=== PATIENT | male | born 1965 | race Caucasian/White ===

== ENCOUNTER 2020-09-16 07:36 | Outpatient (CLI) | payer BC, SELFPAY ==
[2020-09-16 19:07] LABS: Basophils Absolute Auto 0.2 K/mm3 (0.0-0.1); Basophils Percent Auto 1.6 % (0.2-1.2); Eosinophils Absolute Auto 0.2 K/mm3 (0-0.3); Eosinophils Percent Auto 1.6 % (0-4.4); Hematocrit 42.4 % (42.0-52.0); Hemoglobin 13.6 g/dL (14.0-18.0); Lymphocytes Absolute Auto 1.54 K/mm3 (0.9-3.2); Lymphocytes Percent Auto 14.9 % (18.3-44.2); Mean Corpuscular HGB Conc 32.1 g/dl (32-36); Mean Corpuscular Hemoglobin 32.6 pg (26-34); Mean Corpuscular Volume 101.7 fl (80-100); Mean Platelet Volume 8.7 fl (7.4-10.4); Monocytes Absolute Auto 0.8 K/mm3 (0.1-0.6); Monocytes Percent Auto 7.8 % (2.6-8.5); Neutrophils Absolute Auto 7.5 K/mm3 (1.3-6.7); Neutrophils Percent Auto 73.1 % (45.5-73.1); Platelet Count Result 472 k/mm3 (150-375); Red Blood Count 4.17 M/mm3 (4.6-6.20); Red Cell Distribution Width 13.4 % (11.5-14.5); White Blood Count 10.3 K/mm3 (4.5-10.0)
[2020-09-16 19:19] LABS: Alanine Aminotransferase 19 U/L (4-50); Albumin Level 4.6 g/dL (3.5-5.1); Alkaline Phosphatase 96 U/L (38-126); Anion Gap 8 mmol/L (8-16); Aspartate Amino Transferase 24 U/L (17-59); Bilirubin,Total 0.6 mg/dL (0.2-1.3); Blood Urea Nitrogen 16 mg/dL (9-20); Calcium 10.2 mg/dL (8.4-10.2); Carbon Dioxide 27 mmol/L (22-30); Chloride 102 mmol/L (98-107); Cholesterol 179 mg/dL (0-200); Estimated Glomerular Filt Rate > 60; Glucose 107 mg/dL (75-110); HDL Direct 104 mg/dL; Potassium 4.8 mmol/L (3.4-5.0); Sodium 137 mmol/L (137-145); Triglycerides 58 mg/dL (<150)
[2020-09-16 19:31] LABS: LDL Cholesterol Direct 74 mg/dL
== END 2020-09-16 07:37 | disposition home or self-care (01) ==
PROVIDERS: PCP Family Medicine; Visit Provider Psychiatry & Neurology Neurology
DX: E78.5 Hyperlipidemia, unspecified (principal); Z12.5 Encounter for screening for malignant neoplasm of prostate
CPT/HCPCS: 36415; 80053; 80061; 82306; 85025

== ENCOUNTER 2021-04-27 07:58 | Outpatient (CLI) | payer BC, SELFPAY ==
[2021-04-27 20:04] LABS: Hematocrit 41.4 % (42.0-52.0); Hemoglobin 13.5 g/dL (14.0-18.0); Mean Corpuscular HGB Conc 32.6 g/dl (32-36); Mean Corpuscular Hemoglobin 33.3 pg (26-34); Mean Platelet Volume 8.6 fl (7.4-10.4); Platelet Count Result 488 k/mm3 (150-375); Red Blood Count 4.06 M/mm3 (4.6-6.20); Red Cell Distribution Width 12.8 % (11.5-14.5); White Blood Count 15.3 K/mm3 (4.5-10.0)
[2021-04-27 20:19] LABS: Cholesterol 188 mg/dL (0-200); HDL Direct 81 mg/dL; Triglycerides 76 mg/dL (<150)
[2021-04-27 20:21] LABS: Alanine Aminotransferase 19 U/L (4-50); Albumin Level 4.5 g/dL (3.5-5.1); Alkaline Phosphatase 85 U/L (38-126); Anion Gap 5 mmol/L (8-16); Aspartate Amino Transferase 27 U/L (17-59); Bilirubin,Total 0.5 mg/dL (0.2-1.3); Blood Urea Nitrogen 18 mg/dL (9-20); Calcium 9.9 mg/dL (8.4-10.2); Carbon Dioxide 29 mmol/L (22-30); Chloride 102 mmol/L (98-107); Estimated Glomerular Filt Rate > 60; Glucose 104 mg/dL (65-110); Potassium 4.8 mmol/L (3.4-5.0); Sodium 136 mmol/L (137-145)
[2021-04-27 20:30] LABS: LDL Cholesterol Direct 91 mg/dL
[2021-04-29 19:23] LABS: PSA, Free 0.15 ng/mL; PSA, Total 0.9 ng/mL (<=4.0)
== END 2021-04-27 07:59 | disposition home or self-care (01) ==
LOC: ANHBWCLAB 08:02
PROVIDERS: PCP Family Medicine; Visit Provider Family Medicine
DX: Z00.00 Encounter for general adult medical examination without abnormal findings (principal); K21.9 Gastro-esophageal reflux disease without esophagitis; N52.9 Male erectile dysfunction, unspecified; I10 Essential (primary) hypertension; G35 Multiple sclerosis; E78.49 Other hyperlipidemia; Z83.3 Family history of diabetes mellitus
CPT/HCPCS: 36415; 80053; 80061; 83036; 84153; 84154; 85027

== ENCOUNTER 2021-12-13 07:31 | Outpatient (CLI) | payer BC, SELFPAY ==
[2021-12-13 19:16] LABS: Basophils Absolute Auto 0.2 K/mm3 (0.0-0.1); Basophils Percent Auto 1.3 % (0.2-1.2); Eosinophils Absolute Auto 0.2 K/mm3 (0-0.3); Eosinophils Percent Auto 1.5 % (0-4.4); Hematocrit 41.3 % (42.0-52.0); Hemoglobin 13.2 g/dL (14.0-18.0); Immature Granulocyte Absolute 0.11 K/mm3 (0.00-0.031); Immature Granulocyte Percent A 0.9 % (0-0.5); Lymphocytes Absolute Auto 1.47 K/mm3 (0.9-3.2); Lymphocytes Percent Auto 11.5 % (18.3-44.2); Mean Corpuscular Volume 106.4 fl (80-100); Mean Platelet Volume 8.6 fl (7.4-10.4); Monocytes Absolute Auto 0.9 K/mm3 (0.1-0.6); Monocytes Percent Auto 6.7 % (2.6-8.5); Neutrophils Percent Auto 78.1 % (45.5-73.1); Platelet Count Result 461 k/mm3 (150-375); Red Blood Count 3.88 M/mm3 (4.6-6.20); Red Cell Distribution Width 12.9 % (11.5-14.5); White Blood Count 12.8 K/mm3 (4.5-10.0)
[2021-12-13 21:26] LABS: Macrocytosis 2+ (NORMAL); Platelet Estimate Increased (Adequate)
[2021-12-13 21:27] LABS: Schistocytes None Seen (NORMAL)
== END 2021-12-13 07:32 | disposition home or self-care (01) ==
LOC: ANHBWCLAB 07:33
PROVIDERS: PCP Family Medicine; Visit Provider Family Medicine
DX: D72.829 Elevated white blood cell count, unspecified (principal); G35 Multiple sclerosis; N52.9 Male erectile dysfunction, unspecified; E78.49 Other hyperlipidemia
CPT/HCPCS: 36415; 85025

== ENCOUNTER 2022-03-21 00:34 | Day surgery (SDC) | payer BC, SELFPAY ==
[2022-03-04 15:18] VITALS: BMI 21.2
[2022-03-21 06:17] VITALS: BP 131/84; PULSE 92; RESP 18; TEMP 36.6; O2SAT 100
[2022-03-21] MEDS: LACTATED RINGERS 1,000 ML 150 ML IV CONT (06:25)
--- NOTE | 2022-03-21 07:29 | WPDANESEPPF ---
Anes - Initial Pre Proc Eval Procedure: Operation Date: 03/21/22 07:30 Proposed Procedures p Colonoscopy - Carlos Enrique Campbell MD Date/Time: 03/21/22 07:29 Surgeon: Carlos Enrique Campbell MD Pre Op Diagnosis: postitive cologuard Patient Data Age: 56 Gender: M Height: 1.91 m Weight: 75 kg Last Vital Signs Temp 97.9 F 03/21/22 06:17 Pulse 92 03/21/22 06:17 Resp 18 03/21/22 06:17 BP 131/84 03/21/22 06:17 Pulse Ox 100 03/21/22 06:17 O2 Del Method Room Air 03/21/22 06:17 Allergies Allergy/AdvReac Type Severity Reaction Status Date / Time celecoxib Allergy Unknown Unknown Verified 03/21/22 06:16 codeine Allergy Unknown Unknown Verified 03/21/22 06:16 Sulfa (Sulfonamide Allergy Unknown Rash Verified 03/21/22 06:16 Antibiotics) Home Medications Medication Instructions Recorded Confirmed Type omeprazole 20 mg tablet,delayed 20 mg PO DAILY 02/19/19 03/21/22 History release cetirizine 10 mg tablet (All Day 10 mg PO DAILY 09/15/20 03/21/22 History Allergy (cetirizine)) diroximel fumarate 231 mg 462 mg PO BID 09/15/20 03/21/22 History capsule,delayed release (Vumerity) simvastatin 20 mg tablet 20 mg PO DAILY #90 tabs 11/06/21 03/21/22 Rx calcium carb-ergocalciferol (vit 1 tablet PO DAILY 03/04/22 03/21/22 History D2) 600 mg calcium-200 unit tablet cholecalciferol (vitamin D3) 125 125 mcg PO DAILY 03/04/22 03/21/22 History mcg (5,000 unit) tablet (Vitamin D3) ipratropium bromide 21 mcg (0.03 1 spray intranasal BID 03/04/22 03/21/22 History %) nasal spray lisinopril 20 mg tablet 20 mg PO DAILY 03/04/22 03/21/22 History multivitamin with minerals-folic 1 tablet PO DAILY 03/04/22 03/21/22 History acid 0.4 mg tablet amlodipine 5 mg tablet 5 mg PO DAILY #90 tabs 03/08/22 03/21/22 Rx Patient hx anesthesia problems: none Family hx anesthesia problems: none Results Review: All pre-operative results and documents have been reviewed as part of the pre-operative evaluation. [facility] Family History Family History Father Hypertension Family history of elevated blood lipids Family history of diabetes mellitus in first degree relative Diabetes mellitus Mother Hypertension Family history of elevated blood lipids Family history of diabetes mellitus in first degree relative Grandparent Family history of chronic obstructive pulmonary disease Social History Social History Smoking status: Former smoker Tobacco type: cigarettes Second hand tobacco smoke exposure: No Alcohol intake: current Drinks per week: 72 Substance use: current Substance use type: marijuana Last use: daily Living arrangements: with family Spiritual care concerns: No Anes - Eval Final PreProcedure Day of Procedure 03/21/22 07:29 Patient weight: normal Heart: regular rate and rhythm Lungs: clear to auscultation Airway: Mallampati scale class II Neurological: alert and oriented Last oral intake: >/= 8 hours ASA classification: III Emergent: no Anesthetic plan: proceed Anesthesia type and monitoring: general GIVS and standard monitoring Results Review: All pre-operative results and documents have been reviewed as part of the pre-operative evaluation. Informed Consent: The patient's anesthetic plan and its attendant risks and benefits were discussed with the patient/family/POA. Questions were solicited and answers provided to the satisfaction of the patient/family/POA.
--- NOTE | 2022-03-21 07:33 | PM.HPGS ---
History of Present Illness History of Present Illness Consent: Risks, benefits, and alternatives have been discussed and questions answered. Patient agrees to proceed with procedure. Chief complaint: postitive cologuard Narrative: Stan Sabillon is a 56 year old male first colonoscopy, had positive cologuard Review of Systems Constitutional: Constitutional: Denies headache(s) and Denies weakness Eyes: Eyes: Denies blurry vision ENT: Reports Normal hearing present, Denies headache(s) and Denies neck pain Cardiovascular: Cardiovascular: Denies chest pain and Denies dyspnea Respiratory: Respiratory: Denies dyspnea Gastrointestinal: Gastrointestinal: Reports no additional gastrointestinal complaints Genitourinary: Genitourinary: Denies dysuria Musculoskeletal: Musculoskeletal: Denies neck pain Integumentary/Breasts: Skin/Breast: Denies dry skin Neurologic: Reports Normal hearing present, Denies headache(s) and Denies weakness Psychiatric: Psychiatric: Denies anxiety Endocrine: Endocrine: Denies change in body appearance Hematologic/Lymphatic: Hematologic/Lymphatic: Denies easy bleeding Allergic/Immunologic: Allergic/Immunologic: Denies urticaria PMF Family History Family History Father Hypertension Family history of elevated blood lipids Family history of diabetes mellitus in first degree relative Diabetes mellitus Mother Hypertension Family history of elevated blood lipids Family history of diabetes mellitus in first degree relative Grandparent Family history of chronic obstructive pulmonary disease Social History Social History Smoking status: Former smoker Tobacco type: cigarettes Second hand tobacco smoke exposure: No Alcohol intake: current Drinks per week: 72 Substance use: current Substance use type: marijuana Last use: daily Living arrangements: with family Spiritual care concerns: No Meds Home Medications and Allergies Home Medications Medication Instructions Recorded Confirmed Type omeprazole 20 mg tablet,delayed 20 mg PO DAILY 02/19/19 03/21/22 History release cetirizine 10 mg tablet (All Day 10 mg PO DAILY 09/15/20 03/21/22 History Allergy (cetirizine)) diroximel fumarate 231 mg 462 mg PO BID 09/15/20 03/21/22 History capsule,delayed release (Vumerity) simvastatin 20 mg tablet 20 mg PO DAILY #90 tabs 11/06/21 03/21/22 Rx calcium carb-ergocalciferol (vit 1 tablet PO DAILY 03/04/22 03/21/22 History D2) 600 mg calcium-200 unit tablet cholecalciferol (vitamin D3) 125 125 mcg PO DAILY 03/04/22 03/21/22 History mcg (5,000 unit) tablet (Vitamin D3) ipratropium bromide 21 mcg (0.03 1 spray intranasal BID 03/04/22 03/21/22 History %) nasal spray lisinopril 20 mg tablet 20 mg PO DAILY 03/04/22 03/21/22 History multivitamin with minerals-folic 1 tablet PO DAILY 03/04/22 03/21/22 History acid 0.4 mg tablet amlodipine 5 mg tablet 5 mg PO DAILY #90 tabs 03/08/22 03/21/22 Rx Allergies Allergy/AdvReac Type Severity Reaction Status Date / Time celecoxib Allergy Unknown Unknown Verified 03/21/22 06:16 codeine Allergy Unknown Unknown Verified 03/21/22 06:16 Sulfa (Sulfonamide Allergy Unknown Rash Verified 03/21/22 06:16 Antibiotics) Vital Signs Vital Signs - 24 hr 03/21/22 06:17 Temperature 97.9 F Pulse Rate 92 Respiratory Rate 18 Blood Pressure 131/84 Pulse Oximetry 100 Oxygen Delivery Room Air Exam Const: General: comfortable and no acute distress HENMT: Face/Nose/Sinus: Normal nares present Eyes: General: appearance normal, both eyes and all related structures Neck: Neck: no JVD Resp: Auscultation: clear to auscultation bilaterally Cardio: Rate: regular rate Rhythm: regular rhythm GI: Inspection: non-distended GI Palp: Yes Soft to palpation Skin: General skin exam: normal color N
[2022-03-21 08:25] VITALS: BP 137/79; PULSE 69; RESP 18; O2SAT 96
[2022-03-21 08:35] VITALS: BP 138/84; PULSE 69; RESP 18; O2SAT 96
[2022-03-21 08:45] VITALS: BP 138/81; PULSE 74; RESP 25; O2SAT 100
== END 2022-03-21 09:05 | disposition home or self-care (01) ==
PROVIDERS: PCP Family Medicine; Visit Provider Internal Medicine Gastroenterology
PROC: 0DJD8ZZ Inspection of Lower Intestinal Tract, Via Natural or Artificial Opening Endoscopic (ICD-10-PCS; CPT 45378; principal; 2022-03-21 07:30)
DX: R19.5 Other fecal abnormalities (principal); D12.0 Benign neoplasm of cecum; D12.3 Benign neoplasm of transverse colon; D12.5 Benign neoplasm of sigmoid colon; K57.30 Diverticulosis of large intestine without perforation or abscess without bleeding; K64.8 Other hemorrhoids; Z87.891 Personal history of nicotine dependence; F12.90 Cannabis use, unspecified, uncomplicated
CPT/HCPCS: 45385; 45381; 88305; J2704; J7120

== ENCOUNTER 2022-05-03 08:00 | Outpatient (CLI) | payer BC, SELFPAY ==
[2022-05-03 18:42] LABS: Basophils Absolute Auto 0.2 K/mm3 (0.0-0.1); Basophils Percent Auto 1.7 % (0.2-1.2); Eosinophils Absolute Auto 0.2 K/mm3 (0-0.3); Eosinophils Percent Auto 1.7 % (0-4.4); Hematocrit 42.3 % (42.0-52.0); Hemoglobin 13.7 g/dL (14.0-18.0); Immature Granulocyte Absolute 0.05 K/mm3 (0.00-0.031); Immature Granulocyte Percent A 0.5 % (0-0.5); Lymphocytes Absolute Auto 1.43 K/mm3 (0.9-3.2); Lymphocytes Percent Auto 14.8 % (18.3-44.2); Mean Corpuscular HGB Conc 32.4 g/dl (32-36); Mean Corpuscular Hemoglobin 34.1 pg (26-34); Mean Corpuscular Volume 105.2 fl (80-100); Mean Platelet Volume 8.8 fl (7.4-10.4); Monocytes Absolute Auto 0.7 K/mm3 (0.1-0.6); Monocytes Percent Auto 7.2 % (2.6-8.5); Neutrophils Absolute Auto 7.2 K/mm3 (1.3-6.7); Neutrophils Percent Auto 74.1 % (45.5-73.1); Platelet Count Result 456 k/mm3 (150-375); Red Blood Count 4.02 M/mm3 (4.6-6.20); Red Cell Distribution Width 12.9 % (11.5-14.5); White Blood Count 9.7 K/mm3 (4.5-10.0)
[2022-05-03 18:57] LABS: Alanine Aminotransferase 24 U/L (6-50); Albumin Level 4.8 g/dL (3.5-5.1); Alkaline Phosphatase 87 U/L (38-126); Anion Gap 4 mmol/L (8-16); Aspartate Amino Transferase 63 U/L (17-59); Bilirubin,Total 0.6 mg/dL (0.2-1.3); Blood Urea Nitrogen 17 mg/dL (9-20); Calcium 9.3 mg/dL (8.4-10.2); Carbon Dioxide 31 mmol/L (22-30); Chloride 104 mmol/L (98-107); Cholesterol 200 mg/dL (0-200); Estimated Glomerular Filt Rate > 60; Glucose 103 mg/dL (65-110); HDL Direct 89 mg/dL; Potassium 4.1 mmol/L (3.4-5.0); Sodium 139 mmol/L (137-145); Triglycerides 98 mg/dL (<150)
[2022-05-03 19:08] LABS: LDL Cholesterol Direct 86 mg/dL
[2022-05-03 19:27] LABS: Prostate Specific Antigen 1.1 ng/mL (< OR = 4.0)
== END 2022-05-03 08:01 | disposition home or self-care (01) ==
LOC: ANHBWCLAB 08:00
PROVIDERS: PCP Family Medicine; Visit Provider Family Medicine
DX: Z00.00 Encounter for general adult medical examination without abnormal findings (principal); R19.5 Other fecal abnormalities; K21.9 Gastro-esophageal reflux disease without esophagitis; N52.9 Male erectile dysfunction, unspecified; I10 Essential (primary) hypertension; G35 Multiple sclerosis; E78.49 Other hyperlipidemia; Z12.5 Encounter for screening for malignant neoplasm of prostate
CPT/HCPCS: 36415; 80053; 80061; 83036; 84153; 85025; G0103

== ENCOUNTER 2022-11-01 08:08 | Outpatient (CLI) | payer BC, SELFPAY ==
[2022-11-01 18:38] LABS: Basophils Absolute Auto 0.1 K/mm3 (0.0-0.1); Basophils Percent Auto 1.2 % (0.2-1.2); Eosinophils Absolute Auto 0.1 K/mm3 (0-0.3); Eosinophils Percent Auto 1.1 % (0-4.4); Hematocrit 42.3 % (42.0-52.0); Hemoglobin 13.4 g/dL (14.0-18.0); Immature Granulocyte Absolute 0.09 K/mm3 (0.00-0.031); Immature Granulocyte Percent A 0.9 % (0-0.5); Lymphocytes Absolute Auto 1.46 K/mm3 (0.9-3.2); Lymphocytes Percent Auto 13.9 % (18.3-44.2); Mean Corpuscular HGB Conc 31.7 g/dl (32-36); Mean Corpuscular Hemoglobin 34.1 pg (26-34); Mean Corpuscular Volume 107.6 fl (80-100); Mean Platelet Volume 8.8 fl (7.4-10.4); Monocytes Absolute Auto 0.8 K/mm3 (0.1-0.6); Monocytes Percent Auto 7.7 % (2.6-8.5); Neutrophils Absolute Auto 7.9 K/mm3 (1.3-6.7); Neutrophils Percent Auto 75.2 % (45.5-73.1); Platelet Count Result 458 k/mm3 (150-375); Red Blood Count 3.93 M/mm3 (4.6-6.20); White Blood Count 10.5 K/mm3 (4.5-10.0)
[2022-11-01 19:06] LABS: Alanine Aminotransferase 21 U/L (6-50); Albumin Level 4.7 g/dL (3.5-5.1); Alkaline Phosphatase 83 U/L (38-126); Anion Gap 6 mmol/L (8-16); Aspartate Amino Transferase 56 U/L (17-59); Bilirubin,Total 0.5 mg/dL (0.2-1.3); Blood Urea Nitrogen 19 mg/dL (9-20); Calcium 9.6 mg/dL (8.4-10.2); Carbon Dioxide 30 mmol/L (22-30); Chloride 103 mmol/L (98-107); Cholesterol 189 mg/dL (0-200); Estimated Glomerular Filt Rate > 60; Glucose 103 mg/dL (65-110); HDL Direct 107 mg/dL; Potassium 4.9 mmol/L (3.4-5.0); Sodium 139 mmol/L (137-145); Triglycerides 87 mg/dL (<150)
[2022-11-01 19:17] LABS: LDL Cholesterol Direct 78 mg/dL
[2022-11-01 19:32] LABS: Vitamin D 25 Hydroxy 58.7 ng/mL
[2022-11-01 20:49] LABS: Anisocytosis 1+ (NORMAL); Platelet Estimate Increased (Adequate); Poikilocytosis 1+ (NORMAL); Schistocytes None Seen (NORMAL)
== END 2022-11-01 08:09 | disposition home or self-care (01) ==
LOC: ANHBWCLAB 08:10
PROVIDERS: PCP Family Medicine; Visit Provider Nurse Practitioner Adult Health
DX: I10 Essential (primary) hypertension (principal); E55.9 Vitamin D deficiency, unspecified
CPT/HCPCS: 36415; 80053; 80061; 82306; 85025

== ENCOUNTER 2023-05-08 08:06 | Outpatient (CLI) | payer BC, SELFPAY ==
[2023-05-08 19:23] LABS: Hematocrit 42.4 % (42.0-52.0); Hemoglobin 13.2 g/dL (14.0-18.0); Mean Corpuscular HGB Conc 31.1 g/dl (32-36); Mean Corpuscular Hemoglobin 33.5 pg (26-34); Mean Corpuscular Volume 107.6 fl (80-100); Mean Platelet Volume 8.7 fl (7.4-10.4); Platelet Count Result 449 k/mm3 (150-375); Red Blood Count 3.94 M/mm3 (4.6-6.20); Red Cell Distribution Width 13.6 % (11.5-14.5); White Blood Count 14.8 K/mm3 (4.5-10.0)
[2023-05-08 19:29] LABS: Alanine Aminotransferase 22 U/L (6-50); Albumin Level 4.5 g/dL (3.5-5.1); Alkaline Phosphatase 85 U/L (38-126); Anion Gap 7 mmol/L (8-16); Aspartate Amino Transferase 61 U/L (17-59); Bilirubin,Total 0.4 mg/dL (0.2-1.3); Blood Urea Nitrogen 18 mg/dL (9-20); Calcium 9.7 mg/dL (8.4-10.2); Carbon Dioxide 28 mmol/L (22-30); Chloride 104 mmol/L (98-107); Cholesterol 186 mg/dL (0-200); Estimated Glomerular Filt Rate > 60; Glucose 103 mg/dL (65-110); HDL Direct 107 mg/dL; Potassium 4.4 mmol/L (3.4-5.0); Sodium 139 mmol/L (137-145); Triglycerides 58 mg/dL (<150)
[2023-05-08 19:42] LABS: LDL Cholesterol Direct 82 mg/dL
[2023-05-08 20:00] LABS: Prostate Specific Antigen 1.3 ng/mL (< OR = 4.0)
[2023-05-08 20:38] LABS: Vitamin D 25 Hydroxy 74.1 ng/mL
[2023-05-13 10:45] LABS: Testosterone Free 60.6 pg/mL (35.0-155.0); Testosterone Total 333 ng/dL (250-1100)
== END 2023-05-08 08:07 | disposition home or self-care (01) ==
LOC: ANHBWCLAB 08:08
PROVIDERS: PCP Family Medicine; Visit Provider Family Medicine
DX: E55.9 Vitamin D deficiency, unspecified (principal); E78.5 Hyperlipidemia, unspecified; G35 Multiple sclerosis; I10 Essential (primary) hypertension; K21.9 Gastro-esophageal reflux disease without esophagitis; N52.9 Male erectile dysfunction, unspecified; Z00.00 Encounter for general adult medical examination without abnormal findings; Z12.5 Encounter for screening for malignant neoplasm of prostate; R68.82 Decreased libido; Z79.899 Other long term (current) drug therapy
CPT/HCPCS: 36415; 80053; 80061; 82306; 84153; 84402; 84403; 85027; G0103

== ENCOUNTER 2023-07-24 00:40 | Day surgery (SDC) | payer BC, SELFPAY ==
[2023-07-11 12:57] VITALS: BMI 20.1
[2023-07-24 06:15] VITALS: BP 151/91; PULSE 88; RESP 18; TEMP 36.1; O2SAT 100
[2023-07-24] MEDS: LACTATED RINGERS 1,000 ML 150 ML IV CONT (06:22)
--- NOTE | 2023-07-24 07:28 | WPDANESEPPF ---
Anes - Initial Pre Proc Eval Procedure: Operation Date: 07/24/23 07:30 Proposed Procedures p Colonoscopy - Carlos Enrique Campbell MD Date/Time: 07/24/23 07:28 Surgeon: Carlos Enrique Campbell MD Pre Op Diagnosis: hx colon polyps Patient Data Age: 58 Gender: M Height: 1.91 m Weight: 72.5 kg Last Vital Signs Temp 97.0 F L 07/24/23 06:15 Pulse 88 07/24/23 06:15 Resp 18 07/24/23 06:15 BP 151/91 H 07/24/23 06:15 Pulse Ox 100 07/24/23 06:15 O2 Del Method Room Air 07/24/23 06:15 Allergies Allergy/AdvReac Type Severity Reaction Status Date / Time celecoxib Allergy Unknown Rash Verified 07/24/23 06:13 codeine Allergy Unknown Unknown Verified 07/24/23 06:13 Sulfa (Sulfonamide Allergy Unknown Rash Verified 07/24/23 06:13 Antibiotics) Home Medications Medication Instructions Recorded Confirmed Type omeprazole 20 mg tablet,delayed 20 mg PO DAILY 02/19/19 07/11/23 History release cetirizine 10 mg tablet (All Day 10 mg PO DAILY 09/15/20 07/11/23 History Allergy (cetirizine)) diroximel fumarate 231 mg 462 mg PO BID 09/15/20 07/11/23 History capsule,delayed release (Vumerity) calcium carb-ergocalciferol (vit 1 tablet PO DAILY 03/04/22 07/11/23 History D2) 600 mg calcium-200 unit tablet cholecalciferol (vitamin D3) 125 125 mcg PO DAILY 03/04/22 07/11/23 History mcg (5,000 unit) tablet (Vitamin D3) multivitamin with minerals-folic 1 tablet PO DAILY 03/04/22 07/11/23 History acid 0.4 mg tablet simvastatin 20 mg tablet 20 mg PO DAILY #90 tabs 11/28/22 07/11/23 Rx lisinopril 20 mg tablet See Rx Instructions .Route 03/13/23 07/11/23 Rx .COMPLEX #90 tabs amlodipine 5 mg tablet See Rx Instructions .Route 05/01/23 07/11/23 Rx .COMPLEX #90 tabs syringe with needle 3 mL 23 gauge #14 ea 05/22/23 Rx x 1 1/2 (CareTouch Luer Lock Syringe with needle) testosterone cypionate 200 mg/mL 200 mg IM .every 2 weeks #10 mL 05/22/23 07/11/23 Rx intramuscular oil (Depo-Testosterone) ipratropium bromide 42 mcg (0.06 See Rx Instructions .Route 07/17/23 07/24/23 Rx %) nasal spray .COMPLEX #15 mL Patient hx anesthesia problems: none Family hx anesthesia problems: none Results Review: All pre-operative results and documents have been reviewed as part of the pre-operative evaluation. [facility] Family History Family History Father Hypertension Family history of elevated blood lipids Family history of diabetes mellitus in first degree relative Diabetes mellitus Mother Hypertension Family history of elevated blood lipids Family history of diabetes mellitus in first degree relative Grandparent Family history of chronic obstructive pulmonary disease Social History Social History (Updated 05/03/22 @ 07:18 by Ericka Nava MA) Smoking status: Never smoker Tobacco type: cigarettes Second hand tobacco smoke exposure: No Alcohol intake: current Drinks per week: 50 Substance use: current Substance use type: does not use Last use: daily Lack of Transportation: No Lack of Food: Never True Current Housing: I Have Housing Concerned About Future Housing: No Difficulty Paying Gas/Electric Bills: No Difficulty Paying for Meds: No Currently Unemployed: No Education: Never Attended/Kindergarten Only Difficulty w/ Childcare or Family Care: No Living arrangements: with family Spiritual care concerns: No Anes - Eval Final PreProcedure Day of Procedure 07/24/23 07:28 Patient weight: normal Heart: regular rate and rhythm Lungs: clear to auscultation Airway: Mallampati scale class II Neurological: alert and oriented Last oral intake: >/= 8 hours ASA classification: III Emergent: no Anesthetic plan: proceed Anesthesia type and monitoring: general GIVS and standard monitoring Results Review: All pre-operative results and documents have been reviewed as
--- NOTE | 2023-07-24 07:28 | PM.HPGS ---
History of Present Illness History of Present Illness Consent: Risks, benefits, and alternatives have been discussed and questions answered. Patient agrees to proceed with procedure. Chief complaint: hx colon polyps Narrative: Stan Sabillon is a 58 year old male with large polyps removed last year Review of Systems Review of Systems: All systems reviewed & are unremarkable except as noted in HPI and below PMFSH Past Medical History Medical History (Updated 07/24/23 @ 07:29 by Carlos Enrique Campbell MD) Adenomatous colon polyp Family History Family History Father Hypertension Family history of elevated blood lipids Family history of diabetes mellitus in first degree relative Diabetes mellitus Mother Hypertension Family history of elevated blood lipids Family history of diabetes mellitus in first degree relative Grandparent Family history of chronic obstructive pulmonary disease Social History Social History (Updated 05/03/22 @ 07:18 by Ericka Nava MA) Smoking status: Never smoker Tobacco type: cigarettes Second hand tobacco smoke exposure: No Alcohol intake: current Drinks per week: 50 Substance use: current Substance use type: does not use Last use: daily Lack of Transportation: No Lack of Food: Never True Current Housing: I Have Housing Concerned About Future Housing: No Difficulty Paying Gas/Electric Bills: No Difficulty Paying for Meds: No Currently Unemployed: No Education: Never Attended/Kindergarten Only Difficulty w/ Childcare or Family Care: No Living arrangements: with family Spiritual care concerns: No Meds Home Medications and Allergies Home Medications Medication Instructions Recorded Confirmed Type omeprazole 20 mg tablet,delayed 20 mg PO DAILY 02/19/19 07/11/23 History release cetirizine 10 mg tablet (All Day 10 mg PO DAILY 09/15/20 07/11/23 History Allergy (cetirizine)) diroximel fumarate 231 mg 462 mg PO BID 09/15/20 07/11/23 History capsule,delayed release (Vumerity) calcium carb-ergocalciferol (vit 1 tablet PO DAILY 03/04/22 07/11/23 History D2) 600 mg calcium-200 unit tablet cholecalciferol (vitamin D3) 125 125 mcg PO DAILY 03/04/22 07/11/23 History mcg (5,000 unit) tablet (Vitamin D3) multivitamin with minerals-folic 1 tablet PO DAILY 03/04/22 07/11/23 History acid 0.4 mg tablet simvastatin 20 mg tablet 20 mg PO DAILY #90 tabs 11/28/22 07/11/23 Rx lisinopril 20 mg tablet See Rx Instructions .Route 03/13/23 07/11/23 Rx .COMPLEX #90 tabs amlodipine 5 mg tablet See Rx Instructions .Route 05/01/23 07/11/23 Rx .COMPLEX #90 tabs syringe with needle 3 mL 23 gauge #14 ea 05/22/23 Rx x 1 1/2 (CareTouch Luer Lock Syringe with needle) testosterone cypionate 200 mg/mL 200 mg IM .every 2 weeks #10 mL 05/22/23 07/11/23 Rx intramuscular oil (Depo-Testosterone) ipratropium bromide 42 mcg (0.06 See Rx Instructions .Route 07/17/23 07/24/23 Rx %) nasal spray .COMPLEX #15 mL Allergies Allergy/AdvReac Type Severity Reaction Status Date / Time celecoxib Allergy Unknown Rash Verified 07/24/23 06:13 codeine Allergy Unknown Unknown Verified 07/24/23 06:13 Sulfa (Sulfonamide Allergy Unknown Rash Verified 07/24/23 06:13 Antibiotics) Vital Signs Vital Signs - 24 hr 07/24/23 06:15 Temperature 97.0 F L Pulse Rate 88 Respiratory Rate 18 Blood Pressure 151/91 H Pulse Oximetry 100 Oxygen Delivery Room Air Exam Const: General: comfortable and no acute distress HENMT: Face/Nose/Sinus: Normal nares present Eyes: General: appearance normal, both eyes and all related structures Neck: Neck: no JVD Resp: Auscultation: clear to auscultation bilaterally Cardio: Rate: regular rate Rhythm: regular rhythm GI: Inspection: non-distended GI Palp: Yes Soft to palpation Skin: General skin exam: normal color Neur
[2023-07-24 07:46] VITALS: BP 117/82; PULSE 85; RESP 18; O2SAT 100
[2023-07-24 07:56] VITALS: BP 134/84; PULSE 72; RESP 18; O2SAT 100
[2023-07-24 08:06] VITALS: BP 131/83; PULSE 67; RESP 18; O2SAT 100
== END 2023-07-24 08:12 | disposition home or self-care (01) ==
PROVIDERS: PCP Family Medicine; Visit Provider Internal Medicine Gastroenterology
PROC: 0DJD8ZZ Inspection of Lower Intestinal Tract, Via Natural or Artificial Opening Endoscopic (ICD-10-PCS; CPT 45378; principal; 2023-07-24 07:30)
DX: Z12.11 Encounter for screening for malignant neoplasm of colon (principal); K62.1 Rectal polyp; K64.8 Other hemorrhoids; K57.30 Diverticulosis of large intestine without perforation or abscess without bleeding; Z87.891 Personal history of nicotine dependence
CPT/HCPCS: 45385; 88305; J2704; J7120

== ENCOUNTER 2023-07-26 07:29 | Outpatient (CLI) | payer BC, SELFPAY ==
[2023-07-31 12:54] LABS: Testosterone Free 178.8 pg/mL (35.0-155.0); Testosterone Total 930 ng/dL (250-1100)
== END 2023-07-26 07:30 | disposition home or self-care (01) ==
LOC: ANHBWCLAB 07:31
PROVIDERS: PCP Family Medicine; Visit Provider Family Medicine
DX: R79.89 Other specified abnormal findings of blood chemistry (principal)
CPT/HCPCS: 36415; 84402; 84403

== ENCOUNTER 2023-10-04 06:44 | Outpatient (CLI) | payer BC, SELFPAY ==
[2023-10-04 20:00] LABS: Hematocrit 48.4 % (42.0-52.0); Hemoglobin 15.5 g/dL (14.0-18.0); Mean Corpuscular Hemoglobin 34.9 pg (26-34); Mean Platelet Volume 8.8 fl (7.4-10.4); Platelet Count Result 457 k/mm3 (150-375); Red Blood Count 4.44 M/mm3 (4.6-6.20); Red Cell Distribution Width 13.9 % (11.5-14.5); White Blood Count 8.7 K/mm3 (4.5-10.0)
[2023-10-04 20:19] LABS: Alanine Aminotransferase 19 U/L (6-50); Albumin Level 4.7 g/dL (3.5-5.1); Alkaline Phosphatase 79 U/L (38-126); Anion Gap 8 mmol/L (4-12); Aspartate Amino Transferase 70 U/L (17-59); Bilirubin,Total 0.7 mg/dL (0.2-1.3); Blood Urea Nitrogen 19 mg/dL (9-20); Calcium 9.4 mg/dL (8.4-10.2); Carbon Dioxide 30 mmol/L (22-30); Chloride 100 mmol/L (98-107); Estimated Glomerular Filt Rate > 60; Glucose 86 mg/dL (65-110); Potassium 4.5 mmol/L (3.4-5.0); Sodium 138 mmol/L (137-145)
[2023-10-04 20:44] LABS: Prostate Specific Antigen 3.4 ng/mL (< OR = 4.0)
[2023-10-07 18:13] LABS: Testosterone Total 117 ng/dL (250-1100)
== END 2023-10-04 06:45 | disposition home or self-care (01) ==
LOC: ANHBWCLAB 06:45
PROVIDERS: PCP Family Medicine; Visit Provider Family Medicine
DX: N52.9 Male erectile dysfunction, unspecified (principal); R68.82 Decreased libido; R79.89 Other specified abnormal findings of blood chemistry; Z12.5 Encounter for screening for malignant neoplasm of prostate
CPT/HCPCS: 36415; 80053; 84153; 84403; 85027; G0103

== ENCOUNTER 2024-01-17 06:55 | Outpatient (CLI) | payer BC, SELFPAY | END 2024-01-17 06:56 | disposition home or self-care (01) | LOC: ANHBWCLAB 06:57 | PROVIDERS: PCP Family Medicine; Visit Provider Family Medicine | DX: R79.89 Other specified abnormal findings of blood chemistry (principal); N52.9 Male erectile dysfunction, unspecified | CPT/HCPCS: 36415; 84402; 84403 ==

== ENCOUNTER 2024-04-22 06:39 | Outpatient (CLI) | payer BC, SELFPAY ==
--- OUTSIDE RECORDS SUMMARY | 2024-04-22 06:43 | XMS_ITS | Clinical Summary ---
Author Organization [facility] Medical Office Building [address] Address [address] [place] [address] Care Team Providers Care Physician Asst Name Role Phone Andres Jennings MD Primary Care Provider [phone] Allergies Active Allergy Reactions Criticality Noted Date Comments Celecoxib Rash Medium 05/08/2020 Codeine Anaphylaxis High 05/08/2020 Medications lisinopriL (PRINIVIL,ZESTR IL) 20 mg tablet Take 1 tablet (20 mg total) by mouth daily 1 Active amLODIPine (NORVASC) 5 mg tablet Take 1 tablet (5 mg total) by mouth daily 1 Active simvastatin (ZOCOR) 20 mg tablet Take 1 tablet (20 mg total) by mouth daily 1 Active fafhegxr-esc-uq rrous gluconate (CENTRUM) 0.6 mg iron/mL liquid Active calcium carbonate-vitam in D3 500 mg(1,250mg) -125 unit per tablet Take 1 tablet by mouth daily Active omeprazole (PriLOSEC) 20 mg capsule Take 1 capsule (20 mg total) by mouth daily Active ipratropium (ATROVENT) 42 mcg (0.06 %) nasal spray Administer 2 sprays into each nostril 4 (four) times a day 3 Active vitamin D3-vitamin K2 25 mcg (1,000 unit)-90 mcg tablet,disinteg rating Take by mouth Active Vumerity 231 mg capsule,delayed release(/EC) TAKE 2 CAPSULES TWICE A DAY 120 capsule 5 4 Active baclofen (LIORESAL) 10 mg tablet TAKE 1 TABLET BY MOUTH IN THE EVENING 30 tablet 3 4 Active testosterone cypionate (DEPO-TESTOTERO NE) 200 mg/mL injection 1 mL (200 mg total) 4 Active tadalafiL (ADCIRCA) 10 mg tablet Take 1 tablet (10 mg total) by mouth 4 Active Active Problems Problem Noted Date Diagnosed Date Muscle spasm 03/28/2023 Vitamin D deficiency 08/26/2020 Multiple sclerosis 05/08/2020 Medical History Medical History Date Comments Hyperlipidemia Hypertension Family History Medical History Relation Name Comments Diabetes Father Stroke Father Diabetes Mother Hypertension Other Relation Name Status Comments Father Mother Other Social History Tobacco Use Types Packs/Day Years Used Date Smoking Tobacco: Never Smokeless Tobacco: Never Tobacco Cessation:Counseling Given: Not Answered Sex and Gender Information Value Date Recorded Sex Assigned at Not on file 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 Gender Identity Male 05/24/2020 12:06 PM CDT Sexual Orientation Straight 05/24/2020 12 :06 PM CDT Obstetrics History Last Filed Vital Signs Vital Sign Reading Time Taken Comments Blood Pressure 119/81 01/02/2024 7:50 AM CDT Pulse 89 01/02/2024 7:50 AM CDT Temperature - - Respiratory Rate 18 12/06/2022 10:14 AM CDT Oxygen Saturation 96% 01/02/2024 7:50 AM CDT Inhaled Oxygen Concentration - - Weight 75.3 kg (166 lb) 01/02/2024 7:50 AM CDT Height 188 cm (6' 2 ) 01/02/2024 7:50 AM CDT Body Mass Index 21.31 01/02/2024 7:50 AM CDT Plan of Treatment Health Maintenance Due Date Last Done Comments Colon Cancer Screening-Colonoscopy 1966 Depression Screening 1966 Hepatitis C Screening 1966 Prostate Cancer Screening-PSA 1966 DTaP/Tdap/Td Vaccine (1 - Tdap) 1977 Hepatitis B Screening 1984 Regular Well Visit/Exam 18-64 1984 Zoster Vaccine (1 of 2) 2016 Influenza Vaccine (#1) 2023 03/06/2013 Pneumococcal vaccine <65 Aged Out No longer eligible based on patient's age to complete this topic [place] Care Teams Physician Asst Relationship Specialty Start Date End Date Andres Jennings MD PCP - General Family Practice 12/06/22
--- OUTSIDE RECORDS SUMMARY | 2024-04-22 06:43 | XMS_ITS | Clinical Summary ---
Author Organization [facility] Address [address] [place] [address] Phone Care Team Providers Care Movers Name Role Phone Travis Tam MD Primary Care Provider [phone] Social History Tobacco Use Types Packs/Day Years Used Date Smoking Tobacco: Never Assessed Sex and Gender Information Value Date Recorded Sex Assigned at Not on file Legal Sex Male 8:59 PM CDT Gender Identity Not on file Sexual Orientation Not on file Last Filed Vital Signs Vital Sign Reading Time Taken Comments Blood Pressure - - Pulse - - Temperature - - Respiratory Rate - - Oxygen Saturation - - Inhaled Oxygen Concentration - - Weight 77.1 kg (170 lb) 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 Height - - Body Mass Index - - Plan of Treatment Health Maintenance Due Date Last Done Comments Hepatitis C Virus (HCV) Screening 1966 TdaP Immunization 1966 Hepatitis B Immunization (1 of 3 - 19+ 3-dose series) 1985 Colonoscopy 05/10/2011 Colorectal Cancer Screening 05/10/2011 Cologuard 2016 Immunochemical Fecal Occult Blood 2016 Pneumococcal Immunization (5 0+ years) (1 of 1 - PCV) 2016 Zoster Immunization (1 of 2) 2016 PSA Discussion 2021 Influenza Immunization (#1) 2023 SARS-COV-2 Immunization (1 - 2023-25 season) 2023 Respiratory Syncytial Virus (RSV) Immunization (Adult) (1 - 1-dose 75+ series) 2041 Meningococcal Immunization (ACWY) Aged Out No longer eligible based on patient's age to complete this topic Pneumococcal Immunization Combined Aged Out No longer eligible based on patient's age to complete this topic Rotavirus Immunization Aged Out No lo nger eligible based on patient's age to complete this topic Care Teams Movers Relationship Specialty Start Date End Date Travis Tam MD [address] [place] [address] [place] [address] PCP - General Family Medicine 01/19/16
--- OUTSIDE RECORDS SUMMARY | 2024-04-22 06:43 | XMS_ITS | Referral Summary ---
Author Organization [facility] Medical Office Building [address] Address [address] [place] [address] Care Team Providers Care Telecom Field Technician Name Role Phone Andres Jennings MD Primary Care Provider [phone] Allergies Active Allergy Reactions Criticality Noted Date [...] mg total) by mouth daily 1 Active nqubfnzu-xlm-hx rrous gluconate (CENTRUM) 0.6 mg iron/mL liquid [...] Vitamin D deficiency 08/26/2020 Multiple sclerosis 05/08/2020 Social History Tobacco Use Types Packs/Day Years Used Date Smoking Tobacco: Never Smokeless Tobacco: Never Tobacco Cessation:Counseling Given: Not Answered Sex and Gender Information Value Date Recorded Sex Assigned at Not on file 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
[2024-04-22 19:11] LABS: Alanine Aminotransferase 20 U/L (6-50); Albumin Level 4.4 g/dL (3.5-5.1); Alkaline Phosphatase 88 U/L (38-126); Anion Gap 7 mmol/L (4-12); Aspartate Amino Transferase 43 U/L (17-59); Bilirubin,Total 0.4 mg/dL (0.2-1.3); Blood Urea Nitrogen 16 mg/dL (9-20); Calcium 9.4 mg/dL (8.4-10.2); Carbon Dioxide 30 mmol/L (22-30); Chloride 102 mmol/L (98-107); Cholesterol 181 mg/dL (0-200); Estimated Glomerular Filt Rate > 60; Glucose 100 mg/dL (65-110); HDL Direct 63 mg/dL; Potassium 4.1 mmol/L (3.4-5.0); Sodium 139 mmol/L (137-145); Triglycerides 75 mg/dL (<150)
[2024-04-22 19:15] LABS: Hematocrit 45.7 % (42.0-52.0); Hemoglobin 14.4 g/dL (14.0-18.0); Mean Corpuscular HGB Conc 31.5 g/dl (32-36); Mean Corpuscular Hemoglobin 32.7 pg (26-34); Mean Corpuscular Volume 103.9 fl (80-100); Mean Platelet Volume 8.8 fl (7.4-10.4); Platelet Count Result 511 k/mm3 (150-375); White Blood Count 9.4 K/mm3 (4.5-10.0)
[2024-04-22 19:22] LABS: LDL Cholesterol Direct 111 mg/dL
[2024-04-22 19:36] LABS: Prostate Specific Antigen 1.8 ng/mL (< OR = 4.0)
[2024-04-22 22:13] LABS: Hepatitis B Surface Antigen Negative (Negative)
[2024-04-22 22:19] LABS: HAV RESULT Negative (Negative); Hepatitis B Core IgM Result Negative (Negative)
[2024-04-22 22:26] LABS: Vitamin D 25 Hydroxy 63.7 ng/mL
[2024-04-22 22:30] LABS: Hepatitis C Virus Antibody Negative (Negative)
== END 2024-04-22 06:40 | disposition home or self-care (01) ==
PROVIDERS: PCP Family Medicine; Visit Provider Family Medicine
DX: Z00.00 Encounter for general adult medical examination without abnormal findings (principal); R79.89 Other specified abnormal findings of blood chemistry; K21.9 Gastro-esophageal reflux disease without esophagitis; G35 Multiple sclerosis; E78.49 Other hyperlipidemia
CPT/HCPCS: 36415; 80053; 80061; 80074; 82306; 82607; 84153; 85027; G0103

== ENCOUNTER 2024-10-07 06:41 | Outpatient (CLI) | payer BC, SELFPAY ==
--- OUTSIDE RECORDS SUMMARY | 2024-10-07 06:44 | XMS_ITS | Clinical Summary ---
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 Height - - Body Mass Index - - Plan of Treatment Health Maintenance Due Date Last Done Comments Hepatitis C Virus (HCV) Screening 1966 TdaP Immunization 1966 Hepatitis B Immunization (1 of 3 - 19+ 3-dose series) 1985 Cologuard 05/10/2011 Colonoscopy 05/10/2011 Colorectal Cancer Screening 05/10/2011 Immunochemical Fecal Occult Blood 05/10/2011 Pneumococcal Immunization (5 0+ years) (1 of 1 - PCV) 2016 Zoster Immunization (1 of 2) 2016 SARS-COV-2 Immunization (1 - 2023- season) 2023 Influenza Immunization (#1) 2024 Respiratory Syncytial Virus (RSV) Immunization (Adult) (1 - 1-dose 75+ series) 2041 Human Papillomavirus (HPV) Immunization Aged Out No longer eligible b ased on patient's age to complete this topic Meningococcal Immunization (ACWY) Aged Out No longer eligible based on patient's age to complete this topic Rotavirus Immunization Aged Out No lo nger eligible based on patient's age to complete this topic Care Teams Cardiopulmonary Technician And Eeg Tech Relationship Specialty Start Date End Date Travis Tam MD [address] [place] [address] [place] [address] PCP - General Family Medicine 01/19/16
--- OUTSIDE RECORDS SUMMARY | 2024-10-07 06:45 | XMS_ITS | Clinical Summary ---
[facility] Address [address] [place] [address] Care Team Providers Care Cabin Agent Name Role Phone Andres Jennings MD Primary Care Provider [phone] Allergies Active Allergy Reactions Criticality Noted Date Comments Celecoxib Rash Medium 05/08/2020 Codeine Anaphylaxis High 05/08/2020 Medications lisinopriL (PRINIVIL,ZEST RIL) 20 mg tablet Take 1 tablet (20 mg total) by mouth daily 04/22/19 21 Active amLODIPine (NORVASC) 5 mg tablet Take 1 tablet (5 mg total) by mouth daily 04/22/19 21 Active simvastatin (ZOCOR) 20 mg tablet Take 1 tablet (20 mg total) by mouth daily 04/22/19 21 Active uheljpqi-xfo-f errous gluconate (CENTRUM) 0.6 mg iron/mL liquid Active calcium carbonate-estela min D3 500 mg(1,250mg) -125 unit per tablet Take 1 tablet by mouth daily Active omeprazole (PriLOSEC) 20 mg capsule Take 1 capsule (20 mg total) by mouth daily Active ipratropium (ATROVENT) 42 mcg (0.06 %) nasal spray Administer 2 sprays into each nostril 4 (four) times a day 11/02/19 23 Active vitamin D3-vitamin K2 25 mcg (1,000 unit)-90 mcg tablet,disinte grating Take by mouth Active testosterone cypionate (DEPO-TESTOTER ONE) 200 mg/mL injection 1 mL (200 mg total) 12/24/19 24 Active tadalafiL (ADCIRCA) 10 mg tablet Take 1 tablet (10 mg total) by mouth 10/09/19 24 Active Vumerity 231 mg capsule,delaye d release(DR/EC) TAKE 2 CAPSULES TWICE A DAY 120 capsule 5 05/22/19 25 Active rOPINIRole (REQUIP) 0.25 mg tabletIndicati ons:Muscle spasm TAKE 2 TABLETS PO BEFORE BEDTIME 60 tablet 5 10/02/19 25 Active rOPINIRole (REQUIP) 0.25 mg tabletIndicati ons:Muscle spasm Take one tablet one hour before bedtime for one week, then 2 tablets before bedtime if pain is not controlled. 60 tablet 3 06/05/19 25 025 Discontinued Active Problems Problem Noted Date Diagnosed Date [...] on file Legal Sex Male 8:27 PM [employer] Gender Identity Male 05/24/2020 12:06 PM CDT Sexual Orientation Straight 05/24/2020 12 :06 PM CDT Obstetrics History Last Filed Vital Signs Vital Sign Reading Time Taken Comments Blood Pressure 120/72 06/04/2024 7:47 AM CDT Pulse 106 06/04/2024 7:47 AM CDT Temperature - - Respiratory Rate 18 12/06/2022 10:14 AM CDT Oxygen Saturation 98% 06/04/2024 7:47 AM CDT Inhaled Oxygen Concentration - - Weight 78 kg (172 lb) 06/04/2024 7:47 AM CDT Height 188 cm (6' 2) 06/04/2024 7:47 AM CDT Body Mass Index 22.08 06/04/2024 7:47 AM CDT Plan of Treatment Health Maintenance Due Date Last Done Comments Colon Cancer Screening-Colonoscopy 1966 Depression Screening 1966 Hepatitis C Screening 1966 Prostate Cancer Screening-PSA 1966 DTaP/Tdap/Td Vaccine (1 - Tdap) 1977 Hepatitis B Screening 1984 Regular Well Visit/Exam 18-64 1984 Zoster Vaccine (1 of 2) 2016 Influenza Vaccine (#1) 2024 03/06/2013 Pneumococcal vaccine <65 Aged Out No longer eligible based on patient's age to complete this topic [place] Care Teams Cabin Agent Relationship Specialty Start Date End Date Andres Jennings MD PCP - General Family Practice 12/06/22
--- OUTSIDE RECORDS SUMMARY | 2024-10-07 06:45 | XMS_ITS | Referral Summary ---
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
[2024-10-07 19:10] LABS: Hematocrit 45.6 % (42.0-52.0); Hemoglobin 14.5 g/dL (14.0-18.0); Immature Granulocyte Percent A 0.5 % (0-0.5); Lymphocytes Absolute Auto 1.63 K/mm3 (0.9-3.2); Mean Corpuscular HGB Conc 31.8 g/dl (32-36); Mean Corpuscular Hemoglobin 33.3 pg (26-34); Mean Corpuscular Volume 104.8 fl (80-100); Nucleated Red Blood Cells Absolute Auto 0.000 K/mm3 (0.0-0.012); Nucleated Red Blood Cells Perc 0.0 % (0.0-0.2); Platelet Count Result 489 k/mm3 (150-375); Red Blood Count 4.35 M/mm3 (4.6-6.20); White Blood Count 7.3 K/mm3 (4.5-10.0)
[2024-10-07 19:15] LABS: Alanine Aminotransferase 17 U/L (6-50); Albumin Level 4.4 g/dL (3.5-5.1); Alkaline Phosphatase 79 U/L (38-126); Anion Gap 5 mmol/L (4-12); Aspartate Amino Transferase 62 U/L (17-59); Bilirubin,Total 0.5 mg/dL (0.2-1.3); Blood Urea Nitrogen 18 mg/dL (9-20); Calcium 9.4 mg/dL (8.4-10.2); Carbon Dioxide 27 mmol/L (22-30); Chloride 102 mmol/L (98-107); Estimated Glomerular Filt Rate > 60; Glucose 98 mg/dL (65-110); Magnesium 2.4 mg/dL (1.6-2.3); Potassium 4.3 mmol/L (3.4-5.0); Sodium 134 mmol/L (137-145); Total Protein 7.5 g/dL (6.3-8.2)
[2024-10-07 20:24] LABS: Vitamin B12 931.0 pg/mL (239-931)
== END 2024-10-07 06:42 | disposition home or self-care (01) ==
LOC: ANHBWCLAB 06:42
PROVIDERS: PCP Family Medicine; Visit Provider Family Medicine
DX: R79.89 Other specified abnormal findings of blood chemistry (principal); I10 Essential (primary) hypertension; E78.49 Other hyperlipidemia; E55.9 Vitamin D deficiency, unspecified; K21.9 Gastro-esophageal reflux disease without esophagitis; N52.9 Male erectile dysfunction, unspecified; Z79.899 Other long term (current) drug therapy
CPT/HCPCS: 36415; 80053; 82306; 82607; 83735; 85025

== ENCOUNTER 2025-01-04 07:46 | Outpatient (CLI) | payer BC, SELFPAY ==
--- NOTE | ~2025-01-04 | US_ITS ---
LIMITED ABDOMINAL ULTRASOUND INDICATION: R74.01 - Elevation of levels of liver transaminase levels COMPARISON: None. FINDINGS: Liver: Visualized portions of the liver are normal in echotexture. Common bile duct: Normal in size at 4 mm. Gallbladder: The gallbladder wall is normal in thickness. No stones or sludge were seen. Huitron's sign: Negative Pancreas: The imaged portions appear normal. Right kidney: Right kidney appears normal on the images provided. IMPRESSION: No significant liver abnormality seen. Reviewed, dictated and finalized at location A. D TRAINING MANAGER
--- OUTSIDE RECORDS SUMMARY | 2025-01-04 07:49 | XMS_ITS | Clinical Summary ---
[facility] Address [address] [place] [address] Care Team Providers Care Dope Firer Name Role Phone Andres Jennings MD Primary Care Provider [phone] Allergies Active Allergy Reactions Criticality Noted Date [...] mg total) by mouth daily 1 Active qnuiofvp-aqt-x errous gluconate (CENTRUM) 0.6 mg iron/mL liquid [...] (10 mg total) by mouth 4 Active Vumerity 231 mg capsule,delaye d release(DR/EC) TAKE 2 CAPSULES TWICE A DAY 120 capsule 5 5 Active rOPINIRole (REQUIP) 1 mg tabletIndicati ons:Restless leg syndrome Take 1 tablet (1 mg total) by mouth nightly 30 tablet 5 5 Active rOPINIRole (REQUIP) 0.25 mg tabletIndicati ons:Muscle spasm TAKE 2 TABLETS PO BEFORE BEDTIME 60 tablet 5 5 12/18/19 25 Discontinu ed(Reorder ) Active Problems Problem Noted Date Diagnosed Date Restless leg syndrome 03/28/2023 Vitamin D deficiency 08/26/2020 Multiple sclerosis 05/08/2020 Encounters Date Type Department Care Team Description 12/17/2024 8:00 AM CDT Office Visit [facility] [address] [place] [phone] Sukhdeep Sommer MD Restless leg syndrome (Primary Dx); Vitamin D deficiency; Multiple sclerosis from Last 3 Months Medical History Medical History Date Comments Hyperlipidemia [...] on file 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 Gender Identity Male 05/24/2020 12:06 PM CDT Sexual Orientation Straight 05/24/2020 12 :06 PM CDT Obstetrics History Last Filed Vital Signs Vital Sign Reading Time Taken Comments Blood Pressure 129/66 12/17/2024 7:54 AM CDT Pulse 70 12/17/2024 7:54 AM CDT Temperature - - Respiratory Rate 18 12/06/2022 10:14 AM CDT Oxygen Saturation 100% 12/17/2024 7:54 AM CDT Inhaled Oxygen Concentration - - Weight 73.1 kg (161 lb 3.2 oz) 12/17/2024 7:54 A M CDT Height 188 cm (6' 2.02) 12/17/2024 7:54 AM CDT Body Mass Index 20.69 12/17/2024 7:54 AM CDT Plan of Treatment Health Maintenance Due Date Last Done Comments Colon Cancer Screening-Colonoscopy 1966 Depression Screening 1966 Hepatitis C Screening 1966 Prostate Cancer Screening-PSA 1966 DTaP/Tdap/Td Vaccine (1 - Tdap) 1977 Hepatitis B Screening 1984 Regular Well Visit/Exam 18-64 1984 Zoster Vaccine (2 of 3) 12/21/2021 10/27/19, 04/27/2021 Influenza Vaccine (#1) 2024 03/06/2013 Pneumococcal vaccine <65 Aged Out No longer eligible based on patient's age to complete this topic [place] Care Teams Dope Firer Relationship Specialty Start Date End Date Andres Jennings MD PCP - General Family Practice 12/06/22
--- OUTSIDE RECORDS SUMMARY | 2025-01-04 07:49 | XMS_ITS | Clinical Summary ---
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
== END 2025-01-04 07:47 | disposition home or self-care (01) ==
LOC: ANHIMG 07:47
PROVIDERS: PCP Family Medicine; Visit Provider Family Medicine
DX: R74.01 Elevation of levels of liver transaminase levels (principal)
CPT/HCPCS: 76705